=== PATIENT | male | born 1990 | race Caucasian/White ===

== ENCOUNTER 2017-02-16 11:44 | Emergency (ER) | payer SELFPAY ==
[~2017-02-16] VITALS: Ht 182.9 cm; Wt 65.9 kg
[2017-02-16 11:47] VITALS: BP 133/70; PULSE 61; TEMP 97.7
== END 2017-02-16 12:52 | disposition home or self-care (01) ==
LOC: COL.ER 11:44
DX: M67.873 Other specified disorders of tendon, right ankle and foot (principal); F12.90 Cannabis use, unspecified, uncomplicated

== ENCOUNTER 2018-02-03 11:32 | Emergency (ER) | payer SELFPAY ==
[~2018-02-03] VITALS: Ht 180.3 cm; Wt 70.0 kg
[2018-02-03] MEDS ORDERED: FLEXERIL 1010 MG/TAB PO (12:41)
[2018-02-03 12:54] VITALS: BP 134/79; PULSE 61; TEMP 97.8
== END 2018-02-03 12:53 | disposition home or self-care (01) ==
LOC: COL.ER 11:32
DX: M25.512 Pain in left shoulder (principal); M62.830 Muscle spasm of back; M25.511 Pain in right shoulder; F17.210 Nicotine dependence, cigarettes, uncomplicated; F12.90 Cannabis use, unspecified, uncomplicated; Z90.89 Acquired absence of other organs
CPT/HCPCS: J1885

== ENCOUNTER 2018-03-09 18:23 | Emergency (ER) | payer SELFPAY ==
[~2018-03-09] VITALS: Ht 182.9 cm; Wt 63.6 kg
[~2018-03-09 18:23] MED LIST: FLEXERIL 1010 MG/TAB PO
[2018-03-09 18:24] VITALS: TEMP 99.4
[2018-03-09 18:39] LABS: BASO % 0.4 % (0.0-2.0); EOS # 0.1 (0.0-0.7); EOS % 0.9 % (0-4.0); GRAN # 9.7 (1.4-6.5); GRAN % 85.6 % (42.2-75.2); LYMPH # 0.6 (1.2-3.4); LYMPH % 5.6 % (20.0-51.0); MEAN CELL VOLUME 84 fl (80.0-100.0); MEAN CORPUSCULAR HGB CONC 35 g/dl (33.0-37.0); MEAN PLATELET VOLUME 9.6 fl (7.4-10.4); MONO # 0.8 (0.1-0.6); MONO % 7.1 % (1.7-9.3); PLATELET COUNT 224 K/mm3 (130-400); RED BLOOD COUNT 6.32 M/mm3 (4.20-5.60); REDCELL DISTRIBUTION WIDTH-CV 12.1 % (11.5-14.5)
[2018-03-09 18:42] LABS: HEMATOCRIT 53.2 % (42.0-52.0); HEMOGLOBIN 18.7 g/dl (13.5-18.0); MEAN CORPUSCULAR HEMOGLOBIN 30 pg (27.0-31.0)
[2018-03-09 18:51] LABS: ALANINE AMINOTRANSFERASE 25 U/L (21-72); ALBUMIN 5.2 gm/dL (3.5-5.0); ALKALINE PHOSPHATASE 70 U/L (50-136); ANION GAP 14 mmol/L (7-16); AST,SGOT 37 U/L (15-37); BILIRUBIN,TOTAL 1.6 mg/dL (0.0-1.0); BLOOD UREA NITROGEN 13 mg/dL (9-20); CALCIUM 10.4 mg/dL (8.4-10.2); CARBON DIOXIDE 23 mmol/L (22-30); CHLORIDE 104 mmol/L (98-107); CREATININE, serum 1.18 mg/dL (0.66-1.25); GLUCOSE 122 mg/dL (74-106); LIPASE 114 U/L (23-300); POTASSIUM 4.5 mmol/L (3.4-5.0); SODIUM 141 mmol/L (137-145); TOTAL PROTEIN 8.8 gm/dL (6.4-8.2)
[2018-03-09 18:53] LABS: C-REACTIVE PROTEIN < 0.5 mg/dL (0.0-0.9)
[2018-03-09 19:57] VITALS: BP 100/83
[2018-03-09] MEDS ORDERED: ZOFRAN 4MG T4 MG/TAB PO (20:18)
[2018-03-09 20:43] VITALS: PULSE 98
== END 2018-03-09 20:45 | disposition home or self-care (01) ==
LOC: COL.ER 18:23
PROVIDERS: Emergency Medicine
DX: R19.7 Diarrhea, unspecified (principal); R11.2 Nausea with vomiting, unspecified; F41.9 Anxiety disorder, unspecified; R10.9 Unspecified abdominal pain; F17.210 Nicotine dependence, cigarettes, uncomplicated; F12.90 Cannabis use, unspecified, uncomplicated
CPT/HCPCS: J2060; J2405; J7030

== ENCOUNTER → 2018-07-01 | Outpatient (CLI) | payer SELFPAY ==
[~2018-07-01] MED LIST changes: +ZOFRAN 4MG T4 MG/TAB PO
== END ==
LOC: COL.RAD 13:30
DX: R55 Syncope and collapse (principal)

== ENCOUNTER → 2019-10-01 | Outpatient (CLI) | payer OTHER | LOC: ZCOL.LAB 17:40 | DX: R19.7 Diarrhea, unspecified (principal); R07.0 Pain in throat; Z20.828 Contact with and (suspected) exposure to other viral communicable diseases ==

== ENCOUNTER 2021-01-08 14:07 | Emergency (ER) | payer SELFPAY ==
[~2021-01-08] VITALS: Ht 182.9 cm; Wt 75.0 kg
[2021-01-08 14:16] VITALS: BP 116/64; TEMP 98.1
[2021-01-08 14:50] VITALS: PULSE 70
== END 2021-01-08 14:50 | disposition home or self-care (01) ==
LOC: COL.ER 14:07
DX: H00.031 Abscess of right upper eyelid (principal)